=== PATIENT | female | born 1940 | race Two or more races ===

== ENCOUNTER 2020-11-27 11:12 | Emergency (ER) | payer OTHER ==
[~2020-11-27] VITALS: Ht 149.9 cm; Wt 55.3 kg
[2020-11-27 12:16] VITALS: BP 95/61
== END 2020-11-27 11:38 | disposition left against medical advice (07) ==
LOC: ER 11:12
DX: R04.0 Epistaxis (principal); D64.9 Anemia, unspecified; I10 Essential (primary) hypertension; Z88.0 Allergy status to penicillin; Z88.6 Allergy status to analgesic agent; Z53.29 Procedure and treatment not carried out because of patient's decision for other reasons
CPT/HCPCS: 93005

== ENCOUNTER 2023-06-13 19:50 | Inpatient (IN) | payer OTHER ==
[~2023-06-13] VITALS: Ht 147.3 cm; Wt 62.8 kg
[2023-06-13 20:47] LABS: Basophils # (auto) 0 10 ^3/uL (0-0.2); Eosinophils # (auto) 0.2 10 ^3/uL (0-0.8); Mean Corpuscular Hgb Conc. 32.1 g/dL (32.0-36.0)
[2023-06-13 20:48] LABS: Basophils % (auto) 0.5 % (0.0-2.0); Eosinophils % (auto) 1.8 % (0.0-7.0); Hematocrit 23.1 % (36.0-46.0); Hemoglobin 7.4 g/dL (12.2-16.2); Lymphocytes # (auto) 2.4 10 ^3/uL (0.4-5.4); Mean Corpuscular Hemoglobin 24.4 pg (28.0-32.0); Mean Corpuscular Volume 75.8 fL (80.0-100.0); Monocytes # (auto) 0.9 10 ^3/uL (0-1.3); Monocytes % (auto) 9.4 % (0.0-12.0); Neutrophils # (auto) 6.1 10 ^3/uL (1.6-8.6); Neutrophils % (auto) 63.3 % (37.0-80.0); Nucleated Red Blood Cells % 0.1 %; Red Blood Cells 3.04 10^6/uL (4.0-5.20); Red Cell Distribution Width 18.7 % (11.8-14.3); White Blood Cell 9.6 10^3/uL (4.4-10.8)
[2023-06-13 20:52] LABS: Urine Bacteria FEW /hpf (None Seen); Urine Blood 1+ /uL (Negative); Urine Clarity HAZY (Clear); Urine Mucus FEW (None Seen); Urine Protein, UAD Negative (Negative); Urine Specific Gravity 1.016 (1.001-1.035); Urine Urobilinogen Normal (Negative); Urine WBC 3 /hpf (0 - 5); Urine pH 6.5 (5.0-8.0)
[2023-06-13 20:54] LABS: Urine Color STRAW (Yellow)
[2023-06-13 20:59] LABS: Alanine Aminotransferase 14 U/L (7-40); Albumin 3.8 g/dL (3.2-4.8); Alkaline Phosphatase 78 U/L (46-116); Anion Gap 6 (5-15); Aspartate Aminotransferase 18 U/L (13-40); BUN/Creatinine Ratio 19.3 (10.0-20.0); Blood Urea Nitrogen 16 mg/dL (9-23); Calcium 8.6 mg/dL (8.7-10.4); Carbon Dioxide 23 mmol/L (20-30); Chloride 110 mmol/L (98-107); Glucose 109 mg/dL (74-106); Potassium 3.6 mmol/L (3.5-5.1); Sodium 139 mmol/L (136-145)
[2023-06-13 21:00] LABS: Bilirubin, Total 0.2 mg/dL (0.2-1.0); Total Protein 6.2 g/dL (5.7-8.2)
[2023-06-13 21:03] LABS: INR 0.92 (0.9-1.15); Partial Thromboplastin Time 25.1 SEC (24.5-34.5); Prothrombin Time 9.7 sec (9.3-11.8)
[2023-06-13 23:03] VITALS: PULSE 83; RESP 16; O2SAT 97
[2023-06-14] VITALS (11 sets, daily range): BP systolic 137–161; BP diastolic 51–104; PULSE 67–84; RESP 16–22; TEMP 97.6–98.2; O2SAT 98–100
[2023-06-14] MEDS: OCTREOTIDE ACETATE 500 MCG/ML VL ONE ×2 (00:03→21:05)
[2023-06-14] MEDS: OCTREOTIDE ACETATE 500 MCG in SODIUM CHL 0.9% 99 ML IV SCH (00:16)
[2023-06-14] MEDS: PANTOPRAZOLE 40 MG/10 ML VIAL INJ IV ONE (00:26)
[2023-06-14] MEDS: PANTOPRAZOLE 40mg/50ML NS AE 50 ML IV ONE (04:50)
[2023-06-14 07:34] LABS: Hemoglobin 9.6 g/dL (12.2-16.2)
[2023-06-14] MEDS ORDERED: NITROGLYCERIN 0.4 MG SL TAB SL PRN (13:00)
[2023-06-14] MEDS ORDERED: MORPHINE SULFATE INJ 2 MG/ml SYRG IV PRN ×2 (13:00→14:00)
[2023-06-14] MEDS ORDERED: HYDROcodone-ACET 5/325MG TAB PO PRN ×2 (13:00→14:00)
[2023-06-14] MEDS ORDERED: ACETAMINOPHEN 325 MG TAB PO PRN (13:00)
[2023-06-14] MEDS: SODIUM CHLORIDE 0.9% 1,000 ML IV SCH (14:14)
[2023-06-14] MEDS: levoFLOXacin 500MG 100 ML IV SCH (14:52)
[2023-06-14] MEDS: PANTOPRAZOLE 40mg/50ML NS AE 50 ML IV SCH (14:53)
[2023-06-14] MEDS ORDERED: diphenhdrAMINE HCL 50 MG/1 ML VL ONE (15:30)
[2023-06-14] MEDS: LIDOCAINE VISCOUS 2% 15ML UD ONE (15:51)
[2023-06-14] MEDS: fentaNYL CITRATE 100 MCG/2 ML VL ONE (15:52)
[2023-06-14] MEDS: MIDAZOLAM HCL 5 MG/ML-1ML VIAL ONE (15:52)
[2023-06-14] MEDS: GOLYTELY 4L KIT PO ONE (16:00)
[2023-06-14] MEDS: BISACODYL 5 MG EC TAB PO ONE (21:48)
[2023-06-14] MEDS: ONDANSETRON HCL 4 MG/2 ML VIAL IV PRN (23:58)
[2023-06-15] VITALS (8 sets, daily range): BP systolic 120–135; BP diastolic 45–77; PULSE 68–82; RESP 12–25; TEMP 97.7–98.3; O2SAT 92–97
[2023-06-15 05:28] LABS: Eosinophils # (auto) 0.2 10 ^3/uL (0-0.8); Hemoglobin 8.5 g/dL (12.2-16.2); Lymphocytes % (auto) 20.9 % (10.0-50.0); Red Cell Distribution Width 19.6 % (11.8-14.3)
[2023-06-15 05:31] LABS: Basophils # (auto) 0 10 ^3/uL (0-0.2); Basophils % (auto) 0.6 % (0.0-2.0); Hematocrit 25.8 % (36.0-46.0); Lymphocytes # (auto) 1.7 10 ^3/uL (0.4-5.4); Mean Corpuscular Hemoglobin 26.2 pg (28.0-32.0); Mean Corpuscular Hgb Conc. 32.8 g/dL (32.0-36.0); Mean Corpuscular Volume 79.9 fL (80.0-100.0); Monocytes # (auto) 0.7 10 ^3/uL (0-1.3); Monocytes % (auto) 8.1 % (0.0-12.0); Neutrophils # (auto) 5.7 10 ^3/uL (1.6-8.6); Neutrophils % (auto) 68.4 % (37.0-80.0); Nucleated Red Blood Cells % 0.1 %; Red Blood Cells 3.22 10^6/uL (4.0-5.20); White Blood Cell 8.3 10^3/uL (4.4-10.8)
[2023-06-15] MEDS ORDERED: fentaNYL CITRATE 100 MCG/2 ML VL ONE (08:32)
[2023-06-15] MEDS ORDERED: MEPERIDINE HCL (50 MG/ML) 1 ML VIAL ONE (08:32)
[2023-06-15] MEDS ORDERED: MIDAZOLAM HCL 2MG/2ML 2ml VIAL (1mg/ml) ONE (08:33)
[2023-06-15] MEDS ORDERED: PROPOFOL 10 MG/ML 20 ML IV ONE (09:07)
[2023-06-15] MEDS ORDERED: DexAMETHasone SOD PHOS 10MG/1ML VIAL INJ ONE (09:07)
[2023-06-15] MEDS ORDERED: MORPHINE SULFATE 4 MG/ML SYR/VIAL IV PRN (09:30)
[2023-06-15] MEDS ORDERED: LABETALOL HCL 5 MG/ML 4ML SYRINGE IV PRN (09:30)
[2023-06-15] MEDS ORDERED: MIDAZOLAM HCL 2MG/2ML 2ml VIAL (1mg/ml) IV PRN (09:30)
[2023-06-15] MEDS ORDERED: ePHEDrine SULFATE 50 MG/ML AMP IV PRN (09:30)
[2023-06-15] MEDS ORDERED: ONDANSETRON HCL 4 MG/2 ML VIAL IV PRN (09:30)
[2023-06-15] MEDS ORDERED: MORPHINE SULFATE INJ 2 MG/ml SYRG IV PRN (09:30)
[2023-06-15 12:15] LABS: Basophils # (auto) 0 10 ^3/uL (0-0.2); Eosinophils # (auto) 0 10 ^3/uL (0-0.8); Hemoglobin 8.2 g/dL (12.2-16.2); Lymphocytes # (auto) 0.6 10 ^3/uL (0.4-5.4); Monocytes # (auto) 0.2 10 ^3/uL (0-1.3)
[2023-06-15 12:18] LABS: Basophils % (auto) 0.3 % (0.0-2.0); Eosinophils % (auto) 0.4 % (0.0-7.0); Hematocrit 26.1 % (36.0-46.0); Lymphocytes % (auto) 6.2 % (10.0-50.0); Mean Corpuscular Hemoglobin 25.6 pg (28.0-32.0); Mean Corpuscular Hgb Conc. 31.3 g/dL (32.0-36.0); Mean Corpuscular Volume 81.8 fL (80.0-100.0); Monocytes % (auto) 1.6 % (0.0-12.0); Neutrophils # (auto) 8.7 10 ^3/uL (1.6-8.6); Neutrophils % (auto) 91.5 % (37.0-80.0); Red Cell Distribution Width 19.6 % (11.8-14.3); White Blood Cell 9.5 10^3/uL (4.4-10.8)
[2023-06-15 16:21] LABS: % Iron Saturation 4.4 % (15-50)
[2023-06-16] VITALS (8 sets, daily range): BP systolic 118–166; BP diastolic 61–74; PULSE 59–86; RESP 16–20; TEMP 97.7–98.3; O2SAT 96–100
[2023-06-16 06:15] LABS: Basophils # (auto) 0 10 ^3/uL (0-0.2); Eosinophils # (auto) 0 10 ^3/uL (0-0.8); Monocytes # (auto) 0.8 10 ^3/uL (0-1.3); Monocytes % (auto) 9.6 % (0.0-12.0); Neutrophils # (auto) 6.6 10 ^3/uL (1.6-8.6); White Blood Cell 8.5 10^3/uL (4.4-10.8)
[2023-06-16 06:19] LABS: Basophils % (auto) 0.5 % (0.0-2.0); Hematocrit 23.1 % (36.0-46.0); Hemoglobin 7.6 g/dL (12.2-16.2); Lymphocytes % (auto) 11.9 % (10.0-50.0); Mean Corpuscular Hemoglobin 26.5 pg (28.0-32.0); Mean Corpuscular Hgb Conc. 32.7 g/dL (32.0-36.0); Mean Corpuscular Volume 81.1 fL (80.0-100.0); Red Blood Cells 2.85 10^6/uL (4.0-5.20); Red Cell Distribution Width 19.2 % (11.8-14.3)
[2023-06-16 06:22] LABS: Anion Gap 7 (5-15); Carbon Dioxide 21 mmol/L (20-30); Chloride 112 mmol/L (98-107); Potassium 3.5 mmol/L (3.5-5.1); Sodium 140 mmol/L (136-145)
[2023-06-16 06:23] LABS: Calcium 7.2 mg/dL (8.7-10.4)
[2023-06-16 06:28] LABS: BUN/Creatinine Ratio 9.4 (10.0-20.0); Blood Urea Nitrogen 6 mg/dL (9-23); Glucose 129 mg/dL (74-106)
[2023-06-16] MEDS: PANTOPRAZOLE 40 MG TAB PO SCH (10:30)
[2023-06-16] MEDS: ASCORBIC ACID 500 MG TAB PO SCH (10:30)
[2023-06-16] MEDS: DOCUSATE SOD 100 MG CAP PO SCH (10:31)
[2023-06-16] MEDS: hydrALAZINE HCL 20 MG/ML VL IV PRN (10:32)
[2023-06-16 11:23] LABS: Basophils # (auto) 0 10 ^3/uL (0-0.2); Eosinophils # (auto) 0 10 ^3/uL (0-0.8); Hemoglobin 8.3 g/dL (12.2-16.2); Lymphocytes # (auto) 1.5 10 ^3/uL (0.4-5.4)
[2023-06-16 11:26] LABS: Basophils % (auto) 0.1 % (0.0-2.0); Hematocrit 25.5 % (36.0-46.0); Lymphocytes % (auto) 11.9 % (10.0-50.0); Mean Corpuscular Hemoglobin 26.3 pg (28.0-32.0); Mean Corpuscular Hgb Conc. 32.4 g/dL (32.0-36.0); Mean Corpuscular Volume 81.1 fL (80.0-100.0); Monocytes # (auto) 1.2 10 ^3/uL (0-1.3); Monocytes % (auto) 9.5 % (0.0-12.0); Neutrophils # (auto) 9.7 10 ^3/uL (1.6-8.6); Neutrophils % (auto) 78.5 % (37.0-80.0); Red Blood Cells 3.14 10^6/uL (4.0-5.20); White Blood Cell 12.4 10^3/uL (4.4-10.8)
[2023-06-16 11:34] LABS: Red Cell Distribution Width 20.1 % (11.8-14.3)
[2023-06-16 11:49] LABS: Folate (Folic Acid) > 24.00 ng/mL (>5.38)
[2023-06-16] MEDS: IRON SUCROSE COMPLEX 100 ML IV SCH (12:18)
[2023-06-16] MEDS: FERROUS SULFATE 325mg EC TAB PO SCH (12:19)
[2023-06-16] MEDS ORDERED: LEVO500T91 PO (19:57)
[2023-06-16] MEDS ORDERED: DOCU-265 PO (19:57)
[2023-06-16] MEDS ORDERED: ASCO500T11 PO (19:57)
[2023-06-16] MEDS ORDERED: FER325T PO (19:57)
== END 2023-06-16 21:30 | disposition home health service (06) | DRG 378 ==
LOC: ER 19:50 → TELE 06-14 13:03 → TELE-WESTW 06-14 18:20
PROVIDERS: ADMIT Internal Medicine; ATTEND Internal Medicine
PROC: 30233N1 Transfusion of Nonautologous Red Blood Cells into Peripheral Vein, Percutaneous Approach (ICD-10-PCS; 2023-06-14)
PROC: 0DB78ZX Excision of Stomach, Pylorus, Via Natural or Artificial Opening Endoscopic, Diagnostic (ICD-10-PCS; principal; 2023-06-14 15:50)
PROC: 0DJD8ZZ Inspection of Lower Intestinal Tract, Via Natural or Artificial Opening Endoscopic (ICD-10-PCS; 2023-06-15)
DX: K57.31 Diverticulosis of large intestine without perforation or abscess with bleeding (principal); N39.0 Urinary tract infection, site not specified; K29.71 Gastritis, unspecified, with bleeding; K64.8 Other hemorrhoids; R53.1 Weakness; R53.83 Other fatigue; I10 Essential (primary) hypertension; E03.9 Hypothyroidism, unspecified; E78.5 Hyperlipidemia, unspecified; D50.9 Iron deficiency anemia, unspecified; Z88.5 Allergy status to narcotic agent; Z88.0 Allergy status to penicillin; Z79.82 Long term (current) use of aspirin
CPT/HCPCS: 36415; 78278; 80048; 80053; 81001; 82270; 82607; 82746; 83540; 83550; 83605; 84484; 85014; 85018; 85025; 85610; 85730; 86850; 86900; 86901; 86920; 87040; 93005; 96365; 96366; A9560; C9113; G0378; J1100; J1756; J1956; J2250; J2405; J2704